=== PATIENT | male | born 1980 | race Caucasian/White ===

== ENCOUNTER 2022-03-14 10:51 | Emergency (ER) | payer OTHER ==
[2022-03-14 11:03] VITALS: BP 100/69; PULSE 87; TEMP 98.4; BMI 23.3
[2022-03-14] MEDS ORDERED: KETOROLAC TROMETHAMINE 30 MG/1 ML VIAL IM ONE (12:52)
[2022-03-14] MEDS ORDERED: KETOROLAC TROMETHAMINE 30 MG/1 ML VIAL ONE (12:54)
== END 2022-03-14 13:58 | disposition home or self-care (01) ==
LOC: JER 10:51 → JERFT 10:51
PROC: 3E023GC Introduction of Other Therapeutic Substance into Muscle, Percutaneous Approach (ICD-10-PCS; principal; 2022-03-14)
DX: S90.32XA Contusion of left foot, initial encounter (principal); V19.40XA Pedal cycle driver injured in collision with unspecified motor vehicles in traffic accident, initial encounter
CPT/HCPCS: 73630-TC-LT; 99284-25